=== PATIENT | female | born 1945 | race Caucasian/White ===

== ENCOUNTER 2020-10-24 11:45 | Outpatient (CLI) | payer MEDICARE | END 2020-10-24 23:59 | disposition home or self-care (01) | LOC: MSC 11:45 | PROVIDERS: ATTEND Internal Medicine | DX: M79.674 Pain in right toe(s) (principal); R16.0 Hepatomegaly, not elsewhere classified; E11.9 Type 2 diabetes mellitus without complications; Z79.84 Long term (current) use of oral hypoglycemic drugs; I10 Essential (primary) hypertension; R60.9 Edema, unspecified; D64.9 Anemia, unspecified; Z79.899 Other long term (current) drug therapy ==

== ENCOUNTER 2020-11-02 11:00 | Outpatient (CLI) | payer MEDICARE | END 2020-11-02 23:59 | disposition home or self-care (01) | LOC: MSC 11:00 | PROVIDERS: ATTEND Internal Medicine | DX: Z09 Encounter for follow-up examination after completed treatment for conditions other than malignant neoplasm (principal); R16.0 Hepatomegaly, not elsewhere classified; R60.9 Edema, unspecified; E11.9 Type 2 diabetes mellitus without complications; Z79.84 Long term (current) use of oral hypoglycemic drugs; I10 Essential (primary) hypertension; E83.42 Hypomagnesemia; D64.9 Anemia, unspecified; Z79.899 Other long term (current) drug therapy ==

== ENCOUNTER 2020-11-23 11:15 | Outpatient (CLI) | payer MEDICARE | END 2020-11-23 23:59 | disposition home or self-care (01) | LOC: MSC 11:15 | PROVIDERS: ATTEND Internal Medicine | DX: E83.42 Hypomagnesemia (principal); R16.0 Hepatomegaly, not elsewhere classified; R60.9 Edema, unspecified; E11.9 Type 2 diabetes mellitus without complications; Z79.84 Long term (current) use of oral hypoglycemic drugs; I10 Essential (primary) hypertension; D64.9 Anemia, unspecified; Z79.899 Other long term (current) drug therapy ==

== ENCOUNTER 2020-12-28 11:30 | Outpatient (CLI) | payer MEDICARE | END 2020-12-28 23:59 | disposition home or self-care (01) | LOC: MSC 11:30 | PROVIDERS: ATTEND Internal Medicine | DX: R60.9 Edema, unspecified (principal); R16.0 Hepatomegaly, not elsewhere classified; E11.9 Type 2 diabetes mellitus without complications; Z79.84 Long term (current) use of oral hypoglycemic drugs; I10 Essential (primary) hypertension; E83.42 Hypomagnesemia; D64.9 Anemia, unspecified ==

== ENCOUNTER → 2021-01-10 | Outpatient (CLI) | payer MEDICARE | END | disposition home or self-care (01) | LOC: MSC 16:00 | PROVIDERS: ATTEND Internal Medicine | DX: R60.9 Edema, unspecified (principal); R16.0 Hepatomegaly, not elsewhere classified; E11.9 Type 2 diabetes mellitus without complications; Z79.84 Long term (current) use of oral hypoglycemic drugs; I10 Essential (primary) hypertension; E83.42 Hypomagnesemia; D64.9 Anemia, unspecified ==

== ENCOUNTER → 2021-02-08 | Outpatient (CLI) | payer MEDICARE | END | disposition home or self-care (01) | LOC: MSC 14:15 | PROVIDERS: ATTEND Internal Medicine | DX: R10.9 Unspecified abdominal pain (principal); R60.9 Edema, unspecified; R16.0 Hepatomegaly, not elsewhere classified; E11.9 Type 2 diabetes mellitus without complications; Z79.84 Long term (current) use of oral hypoglycemic drugs; I10 Essential (primary) hypertension; E83.42 Hypomagnesemia; D64.9 Anemia, unspecified ==

== ENCOUNTER → 2021-03-01 | Outpatient (CLI) | payer MEDICARE | END | disposition home or self-care (01) | LOC: MSC 14:30 | PROVIDERS: ATTEND Internal Medicine | DX: R60.9 Edema, unspecified (principal); E87.6 Hypokalemia; E83.42 Hypomagnesemia; R16.0 Hepatomegaly, not elsewhere classified; E11.9 Type 2 diabetes mellitus without complications; Z79.84 Long term (current) use of oral hypoglycemic drugs; I10 Essential (primary) hypertension; D64.9 Anemia, unspecified ==

== ENCOUNTER 2021-04-30 15:00 | Outpatient (CLI) | payer MEDICARE | END 2021-04-30 23:59 | disposition home or self-care (01) | LOC: MSC 15:00 | PROVIDERS: ATTEND Internal Medicine | DX: Z51.89 Encounter for other specified aftercare (principal); R60.9 Edema, unspecified; E83.42 Hypomagnesemia; E87.6 Hypokalemia; R16.0 Hepatomegaly, not elsewhere classified; E11.9 Type 2 diabetes mellitus without complications; Z79.84 Long term (current) use of oral hypoglycemic drugs; I10 Essential (primary) hypertension; D64.9 Anemia, unspecified ==

== ENCOUNTER → 2021-05-10 | Outpatient (CLI) | payer MEDICARE | END | disposition home or self-care (01) | LOC: MSC 14:30 | PROVIDERS: ATTEND Internal Medicine | DX: R60.9 Edema, unspecified (principal); E83.42 Hypomagnesemia; E87.6 Hypokalemia; R16.0 Hepatomegaly, not elsewhere classified; E11.9 Type 2 diabetes mellitus without complications; Z79.84 Long term (current) use of oral hypoglycemic drugs; I10 Essential (primary) hypertension; D64.9 Anemia, unspecified; Z79.899 Other long term (current) drug therapy ==